=== PATIENT | female | born 1955 | race Two or more races ===

== ENCOUNTER 2024-01-03 09:48 | Emergency (ER) | payer OTHER ==
[~2024-01-03] VITALS: Ht 152.4 cm; Wt 63.6 kg
[2024-01-03 09:54] VITALS: TEMP 97.9
[2024-01-03] MEDS: METHOCARBAMOL 500 MG TABLET PO ONE (10:41)
[2024-01-03] MEDS: KETOROLAC TROMETHAMINE 60 MG/2 ML VIAL IM ONE (10:41)
[2024-01-03] MEDS: LIDOCAINE 5% TRANSDERMAL PATCH TD ONE (10:42)
[2024-01-03 11:32] VITALS: BP 152/91; PULSE 81; RESP 18
[2024-01-03] MEDS ORDERED: IBUP-1492 PO (11:34)
[2024-01-03] MEDS ORDERED: METH-659 PO (11:34)
[2024-01-03] MEDS ORDERED: LIDO700A15 TP (11:35)
== END 2024-01-03 12:03 | disposition home or self-care (01) ==
LOC: EMS 09:49
DX: S29.012A Strain of muscle and tendon of back wall of thorax, initial encounter (principal); S39.012A Strain of muscle, fascia and tendon of lower back, initial encounter; I10 Essential (primary) hypertension; X58.XXXA Exposure to other specified factors, initial encounter; Y93.89 Activity, other specified; Y92.89 Other specified places as the place of occurrence of the external cause; Y99.8 Other external cause status
CPT/HCPCS: 99283; 96372; J1885